=== PATIENT | male | born 1960 ===

== ENCOUNTER → 2018-02-26 | Outpatient (CLI) | payer BC | END | disposition home or self-care (01) | LOC: LAB 12:30 → LAB SHORT 12:30 | DX: N39.0 Urinary tract infection, site not specified (principal) | CPT/HCPCS: 87077; 87086; 87186 ==

== ENCOUNTER 2018-09-15 12:31 | Day surgery (SDC) | payer BC ==
[~2018-09-15] VITALS: Ht 182.9 cm; Wt 110.3 kg
[~2018-09-15 12:31] MED LIST: B Complex #11 EACH PO; CHOL10002 PO; CURCUMIN; DHEA PO; Depo-Testos200 MG/ML IM; [UNRECOGNIZED DRUG - OTHER]
[2018-09-15] MEDS ORDERED: LISI5 PO (13:06)
--- NOTE | 2018-09-15 13:20 | NUR ---
09/15/18 1320 Sulema Fontana PT RESTING IN PREOP WITH LIGHTS DIM AND MONICA AY BEDSIDE.
== END 2018-09-15 14:21 | disposition home or self-care (01) ==
LOC: ORSCSDS 12:31
PROVIDERS: Surgery
PROC: 0DJD8ZZ Inspection of Lower Intestinal Tract, Via Natural or Artificial Opening Endoscopic (ICD-10-PCS; principal; 2018-09-15 13:45)
DX: Z12.11 Encounter for screening for malignant neoplasm of colon (principal); K21.9 Gastro-esophageal reflux disease without esophagitis; I10 Essential (primary) hypertension; Z79.899 Other long term (current) drug therapy
CPT/HCPCS: J2704; J7120